=== PATIENT | female | born 1990 | race Caucasian/White ===

== ENCOUNTER 2018-01-08 10:09 | Emergency (ER) | payer MEDICAID ==
[~2018-01-08] VITALS: Ht 167.6 cm; Wt 96.2 kg
[2018-01-08 10:25] VITALS: BP 134/92; Ht 167.6 cm; Wt 96.2 kg
== END 2018-01-08 11:29 | disposition home or self-care (01) ==
LOC: ED 10:09
DX: L50.0 Allergic urticaria (principal); Z88.2 Allergy status to sulfonamides; Z88.1 Allergy status to other antibiotic agents; Z88.8 Allergy status to other drugs, medicaments and biological substances

== ENCOUNTER 2018-05-23 12:19 | Emergency (ER) | payer SELFPAY ==
[~2018-05-23] VITALS: Ht 162.6 cm; Wt 92.5 kg
[2018-05-23 12:38] VITALS: Ht 162.6 cm; Wt 92.5 kg
[2018-05-23 15:23] LABS: BASOPHIL % 0.4 % (0-2); PLATELET COUNT 304 x10^3mcL (130-400); RED CELL DISTRIBUTION WIDTH 12.8 % (11.5-14.5)
[2018-05-23 15:40] LABS: CARBON DIOXIDE 27.4 mmol/L (21-32); CHLORIDE SERUM 101 mmol/L (98-107); GFR1 > 60 mL/min; GLUCOSE SERUM 319 mg/dL (74-106); POTASSIUM SERUM 3.8 mmol/L (3.5-5.1); SODIUM SERUM 138 mmol/L (136-145)
[2018-05-23 15:46] LABS: ALBUMIN 3.8 g/dL (3.4-5.0); ALKALINE PHOSPHATASE 97 U/L (46-116); ALT/SGPT 16 U/L (14-59); AST/SGOT 17 U/L (15-37); BILIRUBIN TOTAL 0.45 mg/dL (0.20-1.00); MAGNESIUM 1.9 mg/dL (1.8-2.4); PHOSPHOROUS 3.6 mg/dL (2.5-4.9)
[2018-05-23 15:48] LABS: TOTAL PROTEIN, SERUM 8.6 g/dL (6.4-8.2)
[2018-05-23 17:28] VITALS: BP 111/61
== END 2018-05-23 17:28 | disposition home or self-care (01) ==
LOC: ED 12:19
PROVIDERS: Emergency Medicine
DX: R73.9 Hyperglycemia, unspecified (principal); R11.0 Nausea; R51 Headache; Z88.2 Allergy status to sulfonamides; Z88.1 Allergy status to other antibiotic agents
CPT/HCPCS: 82962; J7030; Q0092

== ENCOUNTER 2018-12-18 15:35 | Emergency (ER) | payer SELFPAY ==
[2018-12-18 16:06] VITALS: BP 119/72; Ht 160 cm
== END 2018-12-18 18:30 | disposition home or self-care (01) ==
LOC: ED 15:35
DX: L25.9 Unspecified contact dermatitis, unspecified cause (principal); L73.9 Follicular disorder, unspecified; E11.9 Type 2 diabetes mellitus without complications; Z88.2 Allergy status to sulfonamides; Z88.1 Allergy status to other antibiotic agents

== ENCOUNTER 2019-05-14 14:46 | Emergency (ER) | payer SELFPAY ==
[~2019-05-14] VITALS: Ht 160 cm; Wt 93.9 kg
[2019-05-14 15:01] VITALS: Ht 160 cm; Wt 93.9 kg
[2019-05-14 16:49] LABS: BASOPHIL % 0.7 % (0-2); PLATELET COUNT 327 x10^3mcL (130-400); RED CELL DISTRIBUTION WIDTH 12.8 % (11.5-14.5)
[2019-05-14 17:02] LABS: ALBUMIN 3.7 g/dL (3.4-5.0); ALKALINE PHOSPHATASE 75 U/L (46-116); ALT/SGPT 16 U/L (14-59); AST/SGOT 12 U/L (15-37); BILIRUBIN TOTAL 0.24 mg/dL (0.20-1.00); CALCIUM 8.3 mg/dL (8.5-10.1); CARBON DIOXIDE 27.6 mmol/L (21-32); CHLORIDE SERUM 99 mmol/L (98-107); CREATININE SERUM 0.7 mg/dL (0.6-1.0); GFR1 > 60 mL/min; GLUCOSE SERUM 301 mg/dL (74-106); SODIUM SERUM 135 mmol/L (136-145); TOTAL PROTEIN, SERUM 7.9 g/dL (6.4-8.2)
[2019-05-14 18:10] LABS: UA SPECIFIC GRAVITY <=1.005 (1.005-1.035); microscopic required? YES; urine erythrocyte NEGATIVE (NEGATIVE)
[2019-05-14 18:55] VITALS: BP 104/70
== END 2019-05-14 18:55 | disposition home or self-care (01) ==
LOC: ED 14:46
PROVIDERS: Specialist
DX: N73.9 Female pelvic inflammatory disease, unspecified (principal); N76.0 Acute vaginitis; B37.3 Candidiasis of vulva and vagina; E11.9 Type 2 diabetes mellitus without complications; Z98.890 Other specified postprocedural states; Z88.2 Allergy status to sulfonamides; Z88.8 Allergy status to other drugs, medicaments and biological substances
CPT/HCPCS: 87491; 87591; J0696; J1885; J7030; J7060

== ENCOUNTER 2019-06-20 12:16 | Emergency (ER) | payer MEDICAID ==
[~2019-06-20] VITALS: Ht 160 cm; Wt 91.6 kg
[2019-06-20 12:23] VITALS: Ht 160 cm; Wt 91.6 kg
[2019-06-20 13:48] VITALS: BP 120/65
== END 2019-06-20 13:48 | disposition home or self-care (01) ==
LOC: ED 12:16
DX: N89.8 Other specified noninflammatory disorders of vagina (principal); E11.9 Type 2 diabetes mellitus without complications; Z88.2 Allergy status to sulfonamides

== ENCOUNTER 2019-07-14 18:35 | Emergency (ER) | payer MEDICAID ==
[~2019-07-14] VITALS: Ht 160 cm; Wt 89.8 kg
[2019-07-14 19:18] VITALS: BP 141/84; Ht 160 cm; Wt 89.8 kg
== END 2019-07-14 23:04 | disposition left against medical advice (07) ==
LOC: ED 18:35
DX: Z53.21 Procedure and treatment not carried out due to patient leaving prior to being seen by health care provider (principal)

== ENCOUNTER 2019-09-17 16:51 | Emergency (ER) | payer MEDICAID ==
[~2019-09-17] VITALS: Ht 162.6 cm; Wt 67.6 kg
[2019-09-17 17:19] VITALS: BP 101/51; Ht 162.6 cm; Wt 67.6 kg
== END 2019-09-17 19:15 | disposition home or self-care (01) ==
LOC: ED 16:51
DX: R59.1 Generalized enlarged lymph nodes (principal); Z88.1 Allergy status to other antibiotic agents; Z88.2 Allergy status to sulfonamides